=== PATIENT | female | born 1985 | race Two or more races ===

== ENCOUNTER 2017-11-07 05:07 | Day surgery (SDC) | payer OTHER ==
[2017-11-07] MEDS ORDERED: COLACE100 MG PO (08:38)
[2017-11-07] MEDS ORDERED: PERCOCET 5-3251 EACH PO (08:38)
== END 2017-11-07 13:50 | disposition home or self-care (01) ==
LOC: CIR.AMB 05:07
DX: K60.3 Anal fistula (principal)

== ENCOUNTER → 2020-05-12 | Day surgery (SDC) | payer OTHER ==
[~2020-05-12] MED LIST: AMOX1TAB5; CIPRO100 MG; COLACE100 MG PO; IBU600 MG; METRONIDAZOLE375 MG; NAPROXEN25 GM; PERCOCET 5-3251 EACH PO
== END | disposition home or self-care (01) ==
LOC: ADM 05-05 08:45 → CIR.AMB 06:40
PROVIDERS: ATTEND Surgery
DX: K60.3 Anal fistula (principal); Z20.822 Contact with and (suspected) exposure to COVID-19

== ENCOUNTER 2021-12-06 09:33 | Inpatient (IN) | payer OTHER ==
[~2021-12-06] VITALS: Ht 149.9 cm; Wt 63.5 kg
[2021-12-07] MEDS ORDERED: FOLIC ACID1 MG (10:43)
[2021-12-07] MEDS ORDERED: AMOX1TAB5 PO (16:54)
[2021-12-07] MEDS ORDERED: PERCOCET 5-3251 EACH PO (16:54)
== END 2021-12-07 19:09 | disposition home or self-care (01) | DRG 349 ==
LOC: ER 09:33 → SURH 22:06
PROVIDERS: ADMIT Surgery; ATTEND Surgery
PROC: 0D9Q7ZZ Drainage of Anus, Via Natural or Artificial Opening (ICD-10-PCS; principal; 2021-12-06)
PROC: 0DBQ7ZZ Excision of Anus, Via Natural or Artificial Opening (ICD-10-PCS; 2021-12-06)
DX: K60.3 Anal fistula (principal); Z20.822 Contact with and (suspected) exposure to COVID-19

== ENCOUNTER 2022-05-29 20:18 | Inpatient (IN) | payer OTHER ==
[~2022-05-29] VITALS: Ht 149.9 cm; Wt 63.5 kg
[~2022-05-29 20:18] MED LIST changes: +AMOX1TAB5 PO; +FOLIC ACID1 MG
[2022-06-01] MEDS ORDERED: AMOX1TAB5 PO (13:24)
[2022-06-01] MEDS ORDERED: PERCOCET 5-3251 EACH PO (13:24)
== END 2022-06-01 13:50 | disposition home or self-care (01) | DRG 395 ==
LOC: ER 20:18 → SURG 05-30 14:00
PROVIDERS: ADMIT Surgery; ATTEND Surgery
PROC: 0J9B0ZZ Drainage of Perineum Subcutaneous Tissue and Fascia, Open Approach (ICD-10-PCS; principal; 2022-05-31 12:00)
DX: K60.5 Anorectal fistula (principal); Z20.822 Contact with and (suspected) exposure to COVID-19